=== PATIENT | female | born 1960 | race Caucasian/White ===

== ENCOUNTER 2018-03-29 13:05 | Emergency (ER) | payer OTHER ==
[~2018-03-29] VITALS: Ht 157.5 cm; Wt 68.0 kg
[~2018-03-29 13:05] MED LIST: EYE WASH OP
== END 2018-03-29 17:32 | disposition home or self-care (01) ==
LOC: ER 13:05
DX: J06.9 Acute upper respiratory infection, unspecified (principal)

== ENCOUNTER 2019-03-03 20:19 | Emergency (ER) | payer OTHER ==
[~2019-03-03] VITALS: Ht 157.5 cm; Wt 72.6 kg
[2019-03-03] MEDS ORDERED: FORTAMET500 MG PO (20:41)
== END 2019-03-03 23:55 | disposition home or self-care (01) ==
LOC: ER 20:19
DX: B34.9 Viral infection, unspecified (principal); J11.1 Influenza due to unidentified influenza virus with other respiratory manifestations

== ENCOUNTER 2019-03-29 20:00 | Emergency (ER) | payer OTHER ==
[~2019-03-29] VITALS: Ht 157.5 cm; Wt 77.1 kg
[~2019-03-29 20:00] MED LIST changes: +FORTAMET500 MG PO
== END 2019-03-29 23:51 | disposition home or self-care (01) ==
LOC: ER 20:00
DX: R51 Headache (principal); F06.4 Anxiety disorder due to known physiological condition

== ENCOUNTER 2020-03-05 18:24 | Emergency (ER) | payer OTHER ==
[~2020-03-05] VITALS: Ht 157.5 cm; Wt 74.4 kg
[2020-03-05] MEDS ORDERED: ORPHENADRINE C100 MG PO (22:27)
[2020-03-05] MEDS ORDERED: ACETAMINOPHEN500 M1 PO (22:27)
== END 2020-03-05 22:39 | disposition home or self-care (01) ==
LOC: ER 18:24
DX: S40.022A Contusion of left upper arm, initial encounter (principal); S50.12XA Contusion of left forearm, initial encounter; S00.432A Contusion of left ear, initial encounter; M54.2 Cervicalgia; W18.39XA Other fall on same level, initial encounter; Y93.89 Activity, other specified; Y92.234 Operating room of hospital as the place of occurrence of the external cause; Y99.8 Other external cause status

== ENCOUNTER 2020-04-26 17:55 | Emergency (ER) | payer OTHER ==
[~2020-04-26] VITALS: Ht 157.5 cm; Wt 79.4 kg
[~2020-04-26 17:55] MED LIST changes: +ACETAMINOPHEN500 M1 PO; +ORPHENADRINE C100 MG PO
== END 2020-04-26 21:21 | disposition home or self-care (01) ==
LOC: ER 17:55
DX: R51.9 Headache, unspecified (principal)

== ENCOUNTER 2020-05-10 10:47 | Outpatient (CLI) | payer OTHER | END 2020-05-10 14:51 | disposition home or self-care (01) | LOC: LAB 10:47 | PROVIDERS: ATTEND Internal Medicine Cardiovascular Disease | DX: I10 Essential (primary) hypertension (principal); E11.9 Type 2 diabetes mellitus without complications; E03.8 Other specified hypothyroidism; E78.2 Mixed hyperlipidemia; E55.9 Vitamin D deficiency, unspecified ==

== ENCOUNTER 2020-05-18 08:50 | Outpatient (CLI) | payer OTHER | END 2020-05-18 08:59 | disposition home or self-care (01) | LOC: MAMO-SONO 08:50 | PROVIDERS: ATTEND Internal Medicine Cardiovascular Disease | DX: Z12.31 Encounter for screening mammogram for malignant neoplasm of breast (principal); N63.11 Unspecified lump in the right breast, upper outer quadrant ==

== ENCOUNTER → 2020-06-18 13:42 | Outpatient (CLI) | payer OTHER ==
[~2020-06-18 13:42] MED LIST changes: +KETO10TA2 PO; +SIMVASTATIN5 MG; +ZANAFLEX4 M1 PO
== END | disposition home or self-care (01) ==
LOC: PPH VACUNA 13:42
DX: Z23 Encounter for immunization (principal)

== ENCOUNTER 2020-06-25 10:41 | Emergency (ER) | payer OTHER ==
[~2020-06-25] VITALS: Ht 157.5 cm; Wt 74.8 kg
[~2020-06-25 10:41] MED LIST changes: -KETO10TA2 PO; -SIMVASTATIN5 MG; -ZANAFLEX4 M1 PO
[2020-06-25] MEDS ORDERED: SIMVASTATIN5 MG (10:59)
[2020-06-25] MEDS ORDERED: KETO10TA2 PO (11:22)
[2020-06-25] MEDS ORDERED: ZANAFLEX4 M1 PO (11:22)
== END 2020-06-25 11:48 | disposition home or self-care (01) ==
LOC: ER 10:41
DX: M54.2 Cervicalgia (principal)

== ENCOUNTER 2020-06-26 11:14 | Outpatient (CLI) | payer OTHER ==
[~2020-06-26 11:14] MED LIST changes: +KETO10TA2 PO; +SIMVASTATIN5 MG; +ZANAFLEX4 M1 PO
== END 2020-06-26 11:22 | disposition home or self-care (01) ==
LOC: NUCLEAR 11:14
PROVIDERS: ATTEND Internal Medicine Cardiovascular Disease
DX: M81.0 Age-related osteoporosis without current pathological fracture (principal); E55.9 Vitamin D deficiency, unspecified

== ENCOUNTER → 2020-06-29 11:59 | Outpatient (CLI) | payer OTHER | END | disposition home or self-care (01) | LOC: LAB 11:59 | PROVIDERS: ATTEND Radiology Diagnostic Radiology | DX: K35.80 Unspecified acute appendicitis (principal) ==

== ENCOUNTER 2020-07-05 08:09 | Outpatient (CLI) | payer OTHER | END 2020-07-05 08:22 | disposition home or self-care (01) | LOC: RAD 08:09 → TOM 08:15 → RAD 08:22 | PROVIDERS: ATTEND Surgery | DX: K80.70 Calculus of gallbladder and bile duct without cholecystitis without obstruction (principal); R16.0 Hepatomegaly, not elsewhere classified | CPT/HCPCS: 74178; 76700; Q9965 ==

== ENCOUNTER → 2020-07-23 12:35 | Outpatient (CLI) | payer OTHER | END | disposition home or self-care (01) | LOC: LAB 12:35 | PROVIDERS: ATTEND Anesthesiology | DX: Z03.818 Encounter for observation for suspected exposure to other biological agents ruled out (principal) ==

== ENCOUNTER 2020-08-28 05:55 | Day surgery (SDC) | payer OTHER | END 2020-08-28 10:00 | disposition home or self-care (01) | LOC: AMB-ENDOS 05:55 | PROVIDERS: ATTEND Surgery | DX: D13.1 Benign neoplasm of stomach (principal); D13.2 Benign neoplasm of duodenum; Z20.822 Contact with and (suspected) exposure to COVID-19 ==

== ENCOUNTER → 2020-09-06 09:36 | Outpatient (CLI) | payer OTHER | END | disposition home or self-care (01) | LOC: NUCLEAR 09:00 | DX: K82.2 Perforation of gallbladder (principal) | CPT/HCPCS: 78226; A9537; J2805 ==

== ENCOUNTER → 2020-10-11 | Outpatient (CLI) | payer OTHER ==
[~2020-10-11] MED LIST changes: +ALLERGY RELIEF10 M3 PO; +BENADRYL25 MG PO; +MEDROLPACK PO; +NEURONTIN600 M1 PO; +PERCOCET 5-3251 EACH PO
== END | disposition home or self-care (01) ==
LOC: LAB 11:46
PROVIDERS: ATTEND Emergency Medicine Pediatric Emergency Medicine
DX: Z03.818 Encounter for observation for suspected exposure to other biological agents ruled out (principal)

== ENCOUNTER 2020-10-18 11:38 | Emergency (ER) | payer OTHER ==
[~2020-10-18] VITALS: Ht 157.5 cm; Wt 74.8 kg
[~2020-10-18 11:38] MED LIST changes: -ALLERGY RELIEF10 M3 PO; -BENADRYL25 MG PO; -MEDROLPACK PO; -NEURONTIN600 M1 PO; -PERCOCET 5-3251 EACH PO
[2020-10-18] MEDS ORDERED: ALLERGY RELIEF10 M3 PO (17:13)
[2020-10-18] MEDS ORDERED: MEDROLPACK PO (17:13)
[2020-10-18] MEDS ORDERED: BENADRYL25 MG PO (17:13)
== END 2020-10-18 17:58 ==
LOC: ER 11:38
DX: L50.0 Allergic urticaria (principal)

== ENCOUNTER 2020-10-24 06:00 | Day surgery (SDC) | payer OTHER ==
[~2020-10-24] VITALS: Ht 157.5 cm; Wt 74.8 kg
[~2020-10-24 06:00] MED LIST changes: +ALLERGY RELIEF10 M3 PO; +BENADRYL25 MG PO; +MEDROLPACK PO
[2020-10-24] MEDS ORDERED: PERCOCET 5-3251 EACH PO (09:20)
[2020-10-24] MEDS ORDERED: NEURONTIN600 M1 PO (09:21)
== END 2020-10-24 12:35 | disposition home or self-care (01) ==
LOC: CIR.AMB 06:00 → SURH 07:00 → EDSTATUS 10:15 → SURH 10:15 → CIR.AMB 10:15
PROVIDERS: ATTEND Surgery
DX: K81.1 Chronic cholecystitis (principal); Z20.822 Contact with and (suspected) exposure to COVID-19

== ENCOUNTER → 2020-12-28 10:34 | Outpatient (CLI) | payer OTHER ==
[~2020-12-28 10:34] MED LIST changes: +NEURONTIN600 M1 PO; +PERCOCET 5-3251 EACH PO
== END | disposition home or self-care (01) ==
LOC: LAB 10:34
PROVIDERS: ATTEND Anesthesiology
DX: Z01.818 Encounter for other preprocedural examination (principal)

== ENCOUNTER 2021-03-24 15:34 | Emergency (ER) | payer OTHER ==
[~2021-03-24] VITALS: Ht 157.5 cm; Wt 75.7 kg
== END 2021-03-24 20:28 | disposition home or self-care (01) ==
LOC: ER 15:34
DX: R10.84 Generalized abdominal pain (principal); E11.9 Type 2 diabetes mellitus without complications; Z79.84 Long term (current) use of oral hypoglycemic drugs

== ENCOUNTER → 2021-03-29 09:15 | Outpatient (CLI) | payer OTHER | END | disposition home or self-care (01) | LOC: PPH VACUNA 09:00 | PROVIDERS: ATTEND Emergency Medicine Pediatric Emergency Medicine | DX: Z23 Encounter for immunization (principal) ==

== ENCOUNTER 2021-06-04 11:34 | Outpatient (CLI) | payer OTHER | END 2021-06-04 11:35 | disposition home or self-care (01) | LOC: LAB 11:34 | PROVIDERS: ATTEND Obstetrics & Gynecology | DX: K22.10 Ulcer of esophagus without bleeding (principal); N39.0 Urinary tract infection, site not specified; D50.9 Iron deficiency anemia, unspecified; E03.9 Hypothyroidism, unspecified ==

== ENCOUNTER 2021-07-08 09:06 | Outpatient (CLI) | payer OTHER | END 2021-07-08 09:17 | disposition home or self-care (01) | LOC: MAMO-SONO 09:06 | PROVIDERS: ATTEND Obstetrics & Gynecology | DX: N63.12 Unspecified lump in the right breast, upper inner quadrant (principal); N63.21 Unspecified lump in the left breast, upper outer quadrant; N95.0 Postmenopausal bleeding; K22.10 Ulcer of esophagus without bleeding ==

== ENCOUNTER 2021-08-15 12:32 | Outpatient (CLI) | payer OTHER ==
[~2021-08-15 12:32] MED LIST changes: +DICLOFENAC POTA50 MG PO; +NEURONTIN300 MG PO
== END 2021-08-15 12:35 | disposition home or self-care (01) ==
LOC: RAD 12:32
PROVIDERS: ATTEND Internal Medicine Cardiovascular Disease
DX: I10 Essential (primary) hypertension (principal)

== ENCOUNTER 2021-08-23 14:37 | Outpatient (CLI) | payer OTHER | END 2021-08-23 14:40 | disposition home or self-care (01) | LOC: LAB 14:37 | PROVIDERS: ATTEND Anesthesiology | DX: Z03.818 Encounter for observation for suspected exposure to other biological agents ruled out (principal); Z20.822 Contact with and (suspected) exposure to COVID-19 ==

== ENCOUNTER 2022-04-22 05:40 | Day surgery (SDC) | payer OTHER ==
[~2022-04-22] VITALS: Ht 157.5 cm; Wt 74.8 kg
== END 2022-04-22 11:30 | disposition home or self-care (01) ==
LOC: CIR.AMB 05:40
PROVIDERS: ATTEND Orthopaedic Surgery Hand Surgery
DX: G56.02 Carpal tunnel syndrome, left upper limb (principal); Z20.822 Contact with and (suspected) exposure to COVID-19; E11.9 Type 2 diabetes mellitus without complications; Z79.84 Long term (current) use of oral hypoglycemic drugs

== ENCOUNTER 2022-06-18 17:16 | Emergency (ER) | payer OTHER ==
[~2022-06-18] VITALS: Ht 157.5 cm; Wt 74.8 kg
[2022-06-18] MEDS ORDERED: ZITHROMAX500 MG PO (19:47)
[2022-06-18] MEDS ORDERED: TUSNEL LIQUID178 ML PO (19:47)
== END 2022-06-18 20:05 | disposition home or self-care (01) ==
LOC: ER 17:16
DX: B34.9 Viral infection, unspecified (principal); E11.9 Type 2 diabetes mellitus without complications; Z79.84 Long term (current) use of oral hypoglycemic drugs; Z20.822 Contact with and (suspected) exposure to COVID-19

== ENCOUNTER 2022-07-10 10:21 | Outpatient (CLI) | payer OTHER ==
[~2022-07-10 10:21] MED LIST changes: +TUSNEL LIQUID178 ML PO; +ZITHROMAX500 MG PO
== END 2022-07-10 14:13 | disposition home or self-care (01) ==
LOC: LAB 10:21
PROVIDERS: ATTEND Internal Medicine Cardiovascular Disease
DX: I10 Essential (primary) hypertension (principal); E11.9 Type 2 diabetes mellitus without complications

== ENCOUNTER → 2022-08-25 | Emergency (ER) | payer OTHER ==
[~2022-08-25] VITALS: Ht 157.5 cm; Wt 74.8 kg
[~2022-08-25] MED LIST changes: +GENTAK5 ML OP
== END | disposition home or self-care (01) ==
LOC: ER 12:36
DX: H10.9 Unspecified conjunctivitis (principal); I10 Essential (primary) hypertension; E11.9 Type 2 diabetes mellitus without complications; Z79.84 Long term (current) use of oral hypoglycemic drugs

== ENCOUNTER 2022-08-27 09:17 | Emergency (ER) | payer OTHER ==
[~2022-08-27] VITALS: Ht 157.5 cm; Wt 74.8 kg
== END 2022-08-27 11:48 | disposition home or self-care (01) ==
LOC: ER 09:17
DX: H10.89 Other conjunctivitis (principal); Z20.822 Contact with and (suspected) exposure to COVID-19

== ENCOUNTER 2022-09-29 12:47 | Outpatient (CLI) | payer OTHER | END 2022-09-29 12:49 | disposition home or self-care (01) | LOC: LAB 12:47 | PROVIDERS: ATTEND Obstetrics & Gynecology | DX: R42 Dizziness and giddiness (principal); E78.00 Pure hypercholesterolemia, unspecified; E78.1 Pure hyperglyceridemia; M62.9 Disorder of muscle, unspecified; G62.9 Polyneuropathy, unspecified; R20.2 Paresthesia of skin; E03.9 Hypothyroidism, unspecified; E11.9 Type 2 diabetes mellitus without complications; E22.1 Hyperprolactinemia; N39.0 Urinary tract infection, site not specified; D50.9 Iron deficiency anemia, unspecified; R22.1 Localized swelling, mass and lump, neck ==

== ENCOUNTER → 2022-10-02 | Outpatient (CLI) | payer OTHER | END | disposition home or self-care (01) | LOC: MAMO-SONO 12:07 | PROVIDERS: ATTEND Obstetrics & Gynecology | DX: Z12.31 Encounter for screening mammogram for malignant neoplasm of breast (principal); N63.12 Unspecified lump in the right breast, upper inner quadrant; N63.21 Unspecified lump in the left breast, upper outer quadrant ==

== ENCOUNTER 2023-06-18 09:20 | Outpatient (CLI) | payer OTHER | END 2023-06-18 09:22 | disposition home or self-care (01) | LOC: NUCLEAR 09:20 | PROVIDERS: ATTEND Internal Medicine Cardiovascular Disease | DX: I20.1 Angina pectoris with documented spasm (principal) ==

== ENCOUNTER → 2023-09-10 10:04 | Outpatient (CLI) | payer OTHER ==
[2023-09-10 11:54] LABS: ALBUMIN 3.8 gm/dL (3.4-5.0); BILIRUBIN TOTAL 0.52 mg/dL (0.3-1.2); CALCIUM 9.3 mg/dL (8.5-10.1); CHOL HDL RATIO 5.2 (0-5.0); CREATININE SERUM 0.53 mg/dL (0.55-1.02); GFR 117.67; GLOBULINA 3.8 G/DL (2.4-3.5); POTASSIUM 3.95 mEq/L (3.5-5.1); TOTAL PROTEIN 7.6 gm/dL (6.4-8.2)
== END | disposition home or self-care (01) ==
LOC: LAB 10:04
PROVIDERS: ATTEND Internal Medicine Cardiovascular Disease
DX: E11.65 Type 2 diabetes mellitus with hyperglycemia (principal); E78.2 Mixed hyperlipidemia; I10 Essential (primary) hypertension

== ENCOUNTER 2024-04-12 06:34 | Day surgery (SDC) | payer OTHER ==
[2024-04-08 10:44] LABS: URINE APPEARANCE Clear; URINE BILIRRUBIN Negative (NEGATIVE); URINE BLOOD Negative; URINE COLOR Yellow; URINE KETONE Negative (NEGATIVE); URINE LEUKOCYTE Negative; URINE NITRATE Negative; URINE PROTEIN 30 (NEGATIVE); URINE UROBILINOGEN 0.2 E.U./dl
[2024-04-08 10:45] LABS: URINE BACTERIA 5801.5 uL (0.0-1933); URINE EPITHELIAL CELLS 69.8 uL (0.0-38.8); URINE RBC 2.9 uL (0.0-20.8); URINE WBC 96.4 uL (0.0-23.2)
[2024-04-08 10:47] LABS: URINE CAST 0.58 uL (0.0-1.40); URINE GLUCOSE >=1000 MG/DL (NEGATIVE)
[2024-04-08 10:49] LABS: HEMATOCRIT 42.5 % (36.0-45.00); HEMOGLOBIN 14.4 g/dL (12.0-15.00); MEAN CELL VOLUME 87.7 fL (80.00-100.00); MEAN CORPUSCULAR HEMOGLOBIN 29.6 pg (27.00-32.0); MEAN CORPUSCULAR HGB CONC 33.8 g/dl (32.0-36.0); PLATELET COUNT 259 K/uL (150-450); RED BLOOD COUNT 4.84 M/uL (4.00-6.00); RED CELL DISTRIBUTION WIDTH 13.8 % (11.5-14.5)
[2024-04-08 10:50] VITALS: BP 138/81
[2024-04-08 11:27] LABS: PARTIAL THROMBOPLASTIN TIME 30.5 SECONDS (22.0-34.0); PROTHROMBIN TIME 10.9 SECONDS (9.0-11.5)
[2024-04-08 11:51] LABS: ALBUMIN 4.1 gm/dL (3.4-5.0); BILIRUBIN TOTAL 0.44 mg/dL (0.3-1.2); CALCIUM 10.1 mg/dL (8.5-10.1); CREATININE SERUM 0.61 mg/dL (0.55-1.02); GFR 99.71; GLOBULINA 4.6 G/DL (2.4-3.5); POTASSIUM 4.57 mEq/L (3.5-5.1); TOTAL PROTEIN 8.7 gm/dL (6.4-8.2)
[~2024-04-12] VITALS: Ht 157.5 cm; Wt 72.6 kg
[2024-04-12] MEDS ORDERED: CEFAZOLIN SODIUM 1,000 MG VIAL ONE (10:11)
== END 2024-04-12 12:45 | disposition home or self-care (01) ==
LOC: CIR.AMB 06:34
PROVIDERS: ATTEND Orthopaedic Surgery Hand Surgery
DX: G56.01 Carpal tunnel syndrome, right upper limb (principal); E78.5 Hyperlipidemia, unspecified

== ENCOUNTER 2024-04-28 11:37 | Outpatient (CLI) | payer OTHER | END 2024-04-28 11:40 | disposition home or self-care (01) | LOC: MAMO-SONO 11:37 | PROVIDERS: ATTEND Obstetrics & Gynecology | DX: N63.11 Unspecified lump in the right breast, upper outer quadrant (principal); N63.12 Unspecified lump in the right breast, upper inner quadrant ==

== ENCOUNTER → 2024-06-24 08:41 | Outpatient (CLI) | payer OTHER ==
[2024-06-24 09:26] LABS: HEMATOCRIT 39.6 % (36.0-45.00); HEMOGLOBIN 13.2 g/dL (12.0-15.00); MEAN CELL VOLUME 89.5 fL (80.00-100.00); MEAN CORPUSCULAR HEMOGLOBIN 29.8 pg (27.00-32.0); MEAN CORPUSCULAR HGB CONC 33.3 g/dl (32.0-36.0); PLATELET COUNT 252 K/uL (150-450); RED BLOOD COUNT 4.43 M/uL (4.00-6.00); RED CELL DISTRIBUTION WIDTH 13.7 % (11.5-14.5)
[2024-06-24 10:45] LABS: ALBUMIN 3.9 gm/dL (3.4-5.0); BILIRUBIN TOTAL 0.3 mg/dL (0.3-1.2); CALCIUM 9.5 mg/dL (8.5-10.1); CREATININE SERUM 0.53 mg/dL (0.55-1.02); GFR 117.27; GLOBULINA 3.9 G/DL (2.4-3.5); POTASSIUM 4.47 mEq/L (3.5-5.1); T4 FREE 1.02 NG/ML (0.76-1.46); TOTAL PROTEIN 7.8 gm/dL (6.4-8.2); TSH 1.34 uIU/mL (0.358-3.74)
[2024-06-24 10:54] LABS: CHOL HDL RATIO 6.8 (0-5.0)
== END | disposition home or self-care (01) ==
LOC: LAB 08:41
PROVIDERS: ATTEND Student in an Organized Health Care Education/Training Program
DX: E11.65 Type 2 diabetes mellitus with hyperglycemia (principal); E78.2 Mixed hyperlipidemia; I10 Essential (primary) hypertension; E03.8 Other specified hypothyroidism; C73 Malignant neoplasm of thyroid gland; D50.8 Other iron deficiency anemias

== ENCOUNTER 2024-07-28 08:55 | Outpatient (CLI) | payer OTHER ==
[~2024-07-28 08:55] MED LIST changes: +ARTHRITIS PAIN150 GM TOP
== END 2024-07-28 09:05 | disposition home or self-care (01) ==
LOC: SONOGRAMA 08:55
PROVIDERS: ATTEND Physical Medicine & Rehabilitation
DX: M25.531 Pain in right wrist (principal)